=== PATIENT | female | born 1960 | race Caucasian/White ===

== ENCOUNTER 2018-09-10 20:05 | Emergency (ER) | payer OTHER | END 2018-09-10 20:33 | disposition home or self-care (01) | LOC: BURERS 20:05 | DX: I10 Essential (primary) hypertension (principal); G44.209 Tension-type headache, unspecified, not intractable; J45.909 Unspecified asthma, uncomplicated; I25.2 Old myocardial infarction; Z79.899 Other long term (current) drug therapy | CPT/HCPCS: 99281 ==

== ENCOUNTER 2019-05-03 15:01 | Emergency (ER) | payer OTHER ==
--- NOTE | 2019-05-03 17:27 | RAD ---
LEFT WRIST THREE VIEWS: 05/03/19 No acute fracture was appreciated. There is a little irregularity of the distal pole of the scaphoid, radial side. It did not appear recent, however. The metacarpals all appear intact. IMPRESSION: No acute bony findings. POS: HOME
--- NOTE | 2019-05-03 17:28 | RAD ---
RIGHT WRIST THREE VIEWS: 05/03/19 A nondisplaced fracture of the distal radius is present. The ulna appears intact, as do the adjacent carpal bones. IMPRESSION: Distal radial fracture. Code T POS: HOME
== END 2019-05-03 15:51 | disposition home or self-care (01) ==
LOC: BURERS 15:01
DX: S52.501A Unspecified fracture of the lower end of right radius, initial encounter for closed fracture (principal); S52.502A Unspecified fracture of the lower end of left radius, initial encounter for closed fracture; J45.909 Unspecified asthma, uncomplicated; E03.9 Hypothyroidism, unspecified; Z79.899 Other long term (current) drug therapy; W01.198A Fall on same level from slipping, tripping and stumbling with subsequent striking against other object, initial encounter
CPT/HCPCS: 25600

== ENCOUNTER 2019-08-06 20:15 | Emergency (ER) | payer OTHER ==
[2019-08-06] MEDS ORDERED: Ibuprofen 800 MG TAB ONE (20:34)
[2019-08-06] MEDS ORDERED: Dexamethasone 4 MG TAB ONE (20:34)
== END 2019-08-06 20:43 | disposition home or self-care (01) ==
LOC: BURERS 20:15
DX: J20.9 Acute bronchitis, unspecified (principal); J01.90 Acute sinusitis, unspecified; F17.200 Nicotine dependence, unspecified, uncomplicated; J45.909 Unspecified asthma, uncomplicated; E03.9 Hypothyroidism, unspecified; Z79.899 Other long term (current) drug therapy
CPT/HCPCS: 99283; J8540

== ENCOUNTER 2019-08-09 15:42 | Emergency (ER) | payer OTHER ==
[2019-08-09] MEDS ORDERED: methylPREDNISolone Sod Succ/PF 125 MG/2 ML VIAL ONE (16:01)
[2019-08-09] MEDS ORDERED: Albuterol Sulfate 2.5 mg/0.5 ml Neb ONE ×2 (16:23→18:24)
== END 2019-08-09 20:02 | disposition left against medical advice (07) ==
LOC: BURERS 15:42
DX: J45.909 Unspecified asthma, uncomplicated (principal); E03.9 Hypothyroidism, unspecified; Z79.899 Other long term (current) drug therapy
CPT/HCPCS: 94640; 96372; J2930; J7611; J7620